=== PATIENT | female | born 1960 | race Caucasian/White ===

== ENCOUNTER 2020-02-27 06:47 | Day surgery (SDC) | payer OTHER ==
[2020-02-24 13:17] VITALS: BMI 46.3
[2020-02-27 07:25] VITALS: TEMP 97
[2020-02-27 07:31] LABS: Glucose,Whole Blood 124 mg/dL (75-99)
[2020-02-27] MEDS ORDERED: LACTATED RINGERS 1,000 ML IV ONE (07:32)
[2020-02-27] MEDS ORDERED: LIDOCAINE 1% INJ 10MG/ML (20 ML MDV) ONE (07:42)
[2020-02-27] MEDS ORDERED: PROPOFOL 10 MG/ML 20 ML VIAL IV ONE (07:42)
--- NOTE | 2020-02-27 08:36 | P.PCN ---
Date of Procedure: 02/27/20 Description of Procedure: Brief history: Patient is a pleasant 59-year-old female presented for outpatient colonoscopy for evaluation of polyps and EGD for evaluation of dysphagia. She reports long- standing history of dysphagia for 2 years. She has had an EGD with dilation in the past with persistent symptoms. She is on Protonix therapy. She also has approximately history of colon cancer. She has had polyps removed in the past. Procedure performed: Esophagogastroduodenoscopy with biopsy Colonoscopy with polypectomy Estimated blood loss: Minimal. Preoperative diagnosis: Dysphagia, esophageal dysphagia, history of colon polyps, last colonoscopy 5 years ago by report, does report family history of colon cancer in her brother Anesthesia: MAC Procedure: After informed consent was obtained from the patient was brought into the endoscopy unit and IV sedation was administered by anesthesia under continuous monitoring. Initially upper endoscopy was done. The Olympus GF 190 video endoscope was inserted into the mouth and esophagus intubated without any difficulty and was gradually advanced into the stomach and duodenum and carefully examined, with biopsies taken of the duodenum. The bulb and second part of the duodenum appeared normal. The scope was then withdrawn into the stomach adequately insufflated with air and upon careful examination the antrum and body, cardia and fundus appeared normal, except for some mild scattered erythema in the antrum and body suggestive of mild gastritis with biopsies taken. There were also multiple small polyps in the body of the stomach which were biopsied. The scope was then withdrawn into the esophagus. The GE junction was located at 38 cm to the incisors and appeared regular with sequential dilation with a scope balloon dilator to 15 mm16.5 mm18 mm. It appeared regular with no erythema erosions or ulcerations. Rest of the esophagus appeared normal. Patient tolerated the procedure well. At this time the patient continued to remain sedation. Initial digital rectal examination was normal. Olympus CF 190 video colonoscope was then inserted into the rectum and gradually advanced to the cecum without any difficulty. Careful examination was performed as the scope was gradually being withdrawn. The prep was good. The cecum, ascending colon, transverse colon, descending colon, sigmoid colon and rectum appeared normal. 2 diminutive 2 mm ascending colon polyps were removed with cold forcep polypectomy. A few scattered smallmouth diverticula noted in the sigmoid colon. Retroflexion was performed in the rectum and no lesions were noted. Patient tolerated the procedure well. Impression: 1. Mild gastritis, antrum and body biopsied. Biopsies of the duodenum. A few diminutive gastric polyps (likely fundic gland polyps) biopsied. [id number] balloon dilator with distal esophagus sequentially dilated to 18 mm. 2. 2 diminutive ascending colon polyps removed with cold forcep polypectomy. Mild sigmoid diverticulosis. Recommendations: Findings of this examination were discussed with the patient as well as her family. Okay to resume diet. Okay to resume medications. Await pathology from biopsies and polypectomies. Continue Protonix therapy. Would recommend repeat colonoscopy in 5 years for family history of colon cancer.
[2020-02-27 08:37] VITALS: PULSE 74
[2020-02-27 08:56] VITALS: BP 102/66; RESP 20
== END 2020-02-27 09:08 | disposition home or self-care (01) ==
LOC: ORWHC2ENDO 06:47
PROVIDERS: ATTEND Internal Medicine
DX: Z12.11 Encounter for screening for malignant neoplasm of colon (principal); D12.2 Benign neoplasm of ascending colon; K57.30 Diverticulosis of large intestine without perforation or abscess without bleeding; Z86.010 Personal history of colon polyps; K29.50 Unspecified chronic gastritis without bleeding; K31.7 Polyp of stomach and duodenum; K22.8 Other specified diseases of esophagus; E11.9 Type 2 diabetes mellitus without complications; I25.2 Old myocardial infarction; I25.10 Atherosclerotic heart disease of native coronary artery without angina pectoris; I10 Essential (primary) hypertension; E78.5 Hyperlipidemia, unspecified; J44.9 Chronic obstructive pulmonary disease, unspecified; E07.9 Disorder of thyroid, unspecified; M79.7 Fibromyalgia; M19.90 Unspecified osteoarthritis, unspecified site; K21.9 Gastro-esophageal reflux disease without esophagitis; E66.01 Morbid (severe) obesity due to excess calories; Z68.42 Body mass index [BMI] 45.0-49.9, adult; Z98.890 Other specified postprocedural states; Z91.040 Latex allergy status; Z87.891 Personal history of nicotine dependence; Z79.899 Other long term (current) drug therapy; Z79.02 Long term (current) use of antithrombotics/antiplatelets; Z79.82 Long term (current) use of aspirin; Z79.51 Long term (current) use of inhaled steroids; Z79.52 Long term (current) use of systemic steroids; Z79.890 Hormone replacement therapy; Z90.49 Acquired absence of other specified parts of digestive tract; Z97.2 Presence of dental prosthetic device (complete) (partial); Z88.8 Allergy status to other drugs, medicaments and biological substances; Z88.5 Allergy status to narcotic agent; Z88.0 Allergy status to penicillin; Z88.2 Allergy status to sulfonamides; Z91.02 Food additives allergy status; Z88.1 Allergy status to other antibiotic agents; Z87.19 Personal history of other diseases of the digestive system; Z80.0 Family history of malignant neoplasm of digestive organs
CPT/HCPCS: 88305; 45380; 43239; 43249; J2001; J2704; C1726

== ENCOUNTER 2021-01-04 06:37 | Day surgery (SDC) | payer OTHER ==
[2021-01-02 15:13] VITALS: BMI 48.0
[2021-01-04] MEDS ORDERED: LACTATED RINGERS 1,000 ML IV SCH (06:52)
[2021-01-04 07:13] VITALS: TEMP 97.2
[2021-01-04] MEDS ORDERED: LIDOCAINE 1% (10MG/ML) FOR IV START INTRADERMA ONE (07:14)
[2021-01-04 07:27] LABS: Glucose,Whole Blood 143 mg/dL (75-99)
[2021-01-04] MEDS ORDERED: PROPOFOL 10 MG/ML 20 ML VIAL IV ONE (07:28)
[2021-01-04] MEDS ORDERED: ONDANSETRON 4 MG/2 ML VIAL IVP ONE (07:40)
--- NOTE | 2021-01-04 07:40 | P.PCN ---
Date of Procedure: 01/04/21 Procedure(s) Performed: BRIEF HISTORY: Patient is a 60-year-old, pleasant, white female scheduled for an upper endoscopy as a possible dilation as a part of evaluation of progressive dysphagia to solids for the last 2 years duration. Her symptoms lately have been worse and has been having chronic cough and passive regurgitation. She is hence scheduled for an upper endoscopy to evaluate further. PROCEDURE PERFORMED: Esophagogastroduodenoscop With biopsy PREOPERATIVE DIAGNOSIS: GERD/dysphagia IV sedation per anesthesia. PROCEDURE: After informed consent was obtained, the patient was brought into the endoscopy unit. IV sedation was administered by Anesthesia under continuous monitoring. Initially the Olympus GIF-140 video endoscope was inserted into the mouth. Esophagus intubated without any difficulty. It was gradually advanced into the stomach and duodenum and carefully examined. The bulb and the second part of the duodenum appeared normal. The scope at this time was withdrawn to the stomach, adequately insufflated with air, and upon careful examination, mucosa of the antrum, had multiple scattered erosions consistent with erosive gastritis and biopsies were done from this area. The body, cardia and the fundus appeared normal. The scope was then withdrawn into the esophagus. The GE junction was located at 39 cm from the incisors. The esophagus appeared normal. There were no erosions or ulcerations seen. No evidence of esophageal stricture. Biopsies were done from the distal esophagus and the patient tolerated the procedure well. IMPRESSION: 1. Normal-appearing esophagus with no evidence of esophagitis or esophageal stricture. 2. Antral erosive gastritis RECOMMENDATIONS: The findings of this examination were discussed with the patient as well as a family. She was advised to follow with the biopsy results and continue with Protonix 40 mg daily and follow antireflux measures.. She will continue to avoid NSAIDs.
[2021-01-04] MEDS ORDERED: ONDANSETRON 4 MG/2 ML VIAL ONE (07:42)
[2021-01-04 07:47] VITALS: RESP 16
[2021-01-04 07:58] VITALS: PULSE 82
[2021-01-04 08:15] VITALS: BP 109/69
== END 2021-01-04 08:27 | disposition home or self-care (01) ==
LOC: ORWHC2ENDO 06:37
PROVIDERS: ATTEND Internal Medicine Gastroenterology
DX: K29.60 Other gastritis without bleeding (principal); K31.9 Disease of stomach and duodenum, unspecified; I10 Essential (primary) hypertension; J44.9 Chronic obstructive pulmonary disease, unspecified; E78.5 Hyperlipidemia, unspecified; J45.998 Other asthma; M79.7 Fibromyalgia; Z79.810 Long term (current) use of selective estrogen receptor modulators (SERMs); Z79.02 Long term (current) use of antithrombotics/antiplatelets
CPT/HCPCS: 88305; 43239; J2405; J2704

== ENCOUNTER 2024-09-07 06:19 | Day surgery (SDC) | payer OTHER ==
[~2024-09-07 06:19] MED LIST: LIDOCAINE 1% (10MG/ML) FOR IV START INTRADERMA PRN
[2024-09-07] MEDS: IV FLUID CONTINUATION 1,000 ML IV ONE (06:30)
[2024-09-07 06:57] VITALS: TEMP 97.7
[2024-09-07] MEDS: LACTATED RINGERS 1,000 ML IV SCH (06:57)
[2024-09-07] MEDS: HYDROCORTISONE SUCCINATE 100 MG/2 ML VIAL IV STA (06:59)
[2024-09-07] MEDS ORDERED: PROPOFOL 10 MG/ML 20 ML VIAL IV ONE (07:00)
[2024-09-07] MEDS ORDERED: LIDOCAINE 2% (PF) 20 MG/ML 5 ML VIAL ONE (07:00)
[2024-09-07 07:02] LABS: Glucose,Whole Blood 157 mg/dL (70-110)
--- NOTE | 2024-09-07 07:25 | P.PCN ---
Date of Procedure: 09/07/24 Procedure(s) Performed: Brief history: Patient is a pleasant 63-year-old white female scheduled for an elective upper endoscopy as well as colonoscopy as a part of evaluation of history of GERD and screening for history of colon polyps. Her last colonoscopy was in 2019 and was noted to have tubular adenoma Procedure performed: Esophagogastroduodenoscopy with biopsy Colonoscopy Preoperative diagnosis: Longstanding history of GERD Screening for history of colon polyps Anesthesia: MAC Procedure: After informed consent was obtained from the patient was brought into the endoscopy unit and IV sedation was administered by anesthesia under continuous monitoring. Initially upper endoscopy was done. The Olympus GF 160 video endoscope was inserted inserted into the mouth and esophagus intubated without any difficulty and was gradually advanced into the stomach and duodenum and carefully examined. The bulb and second part of the duodenum appeared normal. The scope was then withdrawn into the stomach adequately insufflated with air and upon careful examination the antrum and mild gastritis and biopsies were done from this area. Mucosa of the d body, cardia and fundus appeared normal. The scope was then withdrawn into the esophagus. The GE junction was located at 40 cm to the incisors. It appeared regular with no erythema erosions or ulcerations. Rest of the esophagus appeared normal. Patient tolerated the procedure well. At this time the patient continued to remain sedation. Initial digital rectal examination was normal. Olympus CF 160 video colonoscope was then inserted into the rectum and gradually advanced to the cecum without any difficulty. Careful examination was performed as the scope was gradually being withdrawn. The prep was cold in several areas of the colon. The cecum, ascending colon, transverse colon, descending colon, sigmoid colon and rectum appeared normal. Retroflexion was performed in the rectum and no lesions were noted. Patient tolerated the procedure well. Impression: 1. Upper endoscopy revealed mild gastritis but no once of esophagitis or Finley's esophagus 2. Colonoscopy was within normal limits with no evidence of colitis or colorectal neoplasia Recommendations: Findings of this examination were discussed with the patient as well as Radha. She was advised to follow-up with the biopsy results. Continue with Protonix 40 mg twice daily and follow antireflux measures. Recommend repeat screening colonoscopy in 10 years.
[2024-09-07 07:31] LABS: Glucose,Whole Blood 160 mg/dL (70-110)
[2024-09-07 07:44] VITALS: PULSE 83; RESP 16
[2024-09-07 07:48] VITALS: BP 116/57
== END 2024-09-07 08:12 | disposition home or self-care (01) ==
LOC: ORWHC2ENDO 06:19
PROVIDERS: ATTEND Internal Medicine Gastroenterology
DX: K29.50 Unspecified chronic gastritis without bleeding (principal); R13.10 Dysphagia, unspecified; Z86.0100 Personal history of colon polyps, unspecified; K21.9 Gastro-esophageal reflux disease without esophagitis
CPT/HCPCS: 45378; 43239; J1720; J2704; J2003; 88305